=== PATIENT | male | born 1990 | race Caucasian/White ===

== ENCOUNTER 2025-09-02 20:32 | Emergency (ER) | payer MEDICAID ==
[~2025-09-02] VITALS: Ht 180.3 cm; Wt 85.5 kg
[2025-09-02 20:44] VITALS: BP 126/83; PULSE 86; RESP 18; TEMP 97.8; O2SAT 100
== END 2025-09-03 00:38 | disposition left against medical advice (07) ==
LOC: ER 20:34
DX: R51.9 Headache, unspecified (principal); R10.A2 Flank pain, left side; R31.9 Hematuria, unspecified; Z53.21 Procedure and treatment not carried out due to patient leaving prior to being seen by health care provider
CPT/HCPCS: 99281